=== PATIENT | male | born 1985 | race Two or more races ===

== ENCOUNTER 2023-01-21 01:59 | Emergency (ER) | payer MEDICAID, OTHER ==
[~2023-01-21] VITALS: Ht 175.3 cm; Wt 77.0 kg
[2023-01-21] MEDS ORDERED: NALOXONE HCL 1MG/ML 2ML SYRINGE ONE (02:12)
[2023-01-21 02:14] VITALS: PULSE 97; RESP 18; TEMP 98.9; O2SAT 97
[2023-01-21] MEDS ORDERED: NALOXONE HCL 1MG/ML 2ML SYRINGE IV ONE (02:30)
[2023-01-21] MEDS ORDERED: ONDANSETRON HCL 4 MG/2 ML VIAL IV ONE (03:00)
[2023-01-21 03:06] LABS: Basophils # (auto) 0.1 10 ^3/uL (0-0.2); Eosinophils # (auto) 0.1 10 ^3/uL (0-0.8); Eosinophils % (auto) 0.6 % (0.0-7.0); Hematocrit 46.2 % (41.0-53.0); Hemoglobin 15.3 g/dL (13.5-17.5); Lymphocytes # (auto) 2.3 10 ^3/uL (0.4-5.4); Lymphocytes % (auto) 25.3 % (10.0-50.0); Mean Corpuscular Hemoglobin 31.6 pg (28.0-32.0); Mean Corpuscular Hgb Conc. 33.1 g/dL (32.0-36.0); Mean Corpuscular Volume 95.4 fL (80.0-100.0); Monocytes # (auto) 0.7 10 ^3/uL (0-1.3); Monocytes % (auto) 7.5 % (0.0-12.0); Neutrophils # (auto) 6.1 10 ^3/uL (1.6-8.6); Neutrophils % (auto) 65.6 % (37.0-80.0); Red Blood Cells 4.84 10^6/uL (4.5-5.90); Red Cell Distribution Width 14.9 % (11.8-14.3); White Blood Cell 9.2 10^3/uL (4.4-10.8)
[2023-01-21 03:11] LABS: Amphetamine Screen, Urine Neg (NEGATIVE)
[2023-01-21 03:12] LABS: Barbiturate Scree,Urine Neg (NEGATIVE); Benzodiazephine Screen, Urine Neg (NEGATIVE); Cannabinoid Screen, Urine Pos (NEGATIVE); Cocaine Screen, Urine Neg (NEGATIVE); Opiate Scree,Urine Neg (NEGATIVE); Phencyclidine Screen, Urine Neg (NEGATIVE)
[2023-01-21 03:15] LABS: Acetaminophen < 2.0 UG/ML (10.0-20.0); Alanine Aminotransferase 26 U/L (7-40); Albumin 4.4 g/dL (3.2-4.8); Alkaline Phosphatase 76 U/L (46-116); Anion Gap 12 (5-15); Aspartate Aminotransferase 71 U/L (13-40); Calcium 8.9 mg/dL (8.7-10.4); Carbon Dioxide 22 mmol/L (20-30); Chloride 107 mmol/L (98-107); Glucose 98 mg/dL (74-106); Lipase 51 U/L (12-53); Potassium 3.7 mmol/L (3.5-5.1); Sodium 141 mmol/L (136-145)
[2023-01-21 03:16] LABS: Bilirubin, Total 0.4 mg/dL (0.2-1.0); Total Protein 7.1 g/dL (5.7-8.2)
[2023-01-21 03:17] LABS: BUN/Creatinine Ratio 6.2 (10.0-20.0); Blood Urea Nitrogen < 5 mg/dL (9-23); Salicylate < 3.0 mg/dL (2.8-20.0)
[2023-01-21 03:25] LABS: Urine Bacteria NONE SEEN /hpf (None Seen); Urine Blood Negative /uL (Negative); Urine Clarity Clear (Clear); Urine Color Colorless (Yellow); Urine Protein, UAD Negative (Negative); Urine Specific Gravity 1.011 (1.001-1.035); Urine Urobilinogen Normal (Negative); Urine WBC 1 /hpf (0 - 3); Urine pH 5.5 (5.0-8.0)
[2023-01-21] MEDS ORDERED: SODIUM CHLORIDE 0.9% 1,000 ML IV ONE (03:45)
[2023-01-21] MEDS ORDERED: ONDANSETRON HCL 4 MG/2 ML VIAL IV PRN (04:00)
[2023-01-21] MEDS ORDERED: IBUPROFEN 600 MG TAB PO PRN (04:00)
[2023-01-21] MEDS ORDERED: DOCUSATE SOD 100 MG CAP PO PRN (04:00)
[2023-01-21] MEDS ORDERED: FOLIC ACID 1 MG, MULTIPLE VITAMIN 10 ML, MAGNESIUM SULF SDV 50% 8 MEQ, THIAMINE INJ 100... INJ SCH ×5 (04:00)
[2023-01-21] MEDS ORDERED: LORazepam 2MG/ML-1ML VIAL IV PRN (04:00)
[2023-01-21 05:03] VITALS: BP 131/71; PULSE 82; RESP 18; O2SAT 98
[2023-01-21] MEDS ORDERED: SODIUM CHLOR 0.9% PF (SALINE LOCK) 10ML VIAL/SYR IV SCH (06:00)
== END 2023-01-21 05:23 | disposition home or self-care (01) ==
LOC: EDBD 01:59 → EDSEX 01:59 → ER 01:59
DX: F10.129 Alcohol abuse with intoxication, unspecified (principal); F12.90 Cannabis use, unspecified, uncomplicated; Z79.899 Other long term (current) drug therapy; Y90.0 Blood alcohol level of less than 20 mg/100 ml
CPT/HCPCS: 36415; 51701; 70450; 71045; 80053; 80307; 80320; 80329; 81001; 83690; 85025; 96361; 96374; 96375; 99285; J2310; J2405; J3411; J3475; J7030; J7070; 51702

== ENCOUNTER 2023-03-16 22:20 | Emergency (ER) | payer MEDICAID ==
[~2023-03-16] VITALS: Ht 182.9 cm; Wt 95.5 kg
[2023-03-16] MEDS ORDERED: SODIUM CHLORIDE 0.9% 1,000 ML IVB ONE (22:45)
[2023-03-16 23:16] VITALS: RESP 18; O2SAT 98
[2023-03-16 23:30] LABS: Eosinophils # (auto) 0.1 10 ^3/uL (0-0.8); Hemoglobin 17.1 g/dL (13.5-17.5); Lymphocytes % (auto) 32.7 % (10.0-50.0)
[2023-03-16 23:32] LABS: Basophils # (auto) 0.2 10 ^3/uL (0-0.2); Basophils % (auto) 1.4 % (0.0-2.0); Eosinophils % (auto) 1.1 % (0.0-7.0); Hematocrit 51.1 % (41.0-53.0); Lymphocytes # (auto) 3.5 10 ^3/uL (0.4-5.4); Mean Corpuscular Hgb Conc. 33.4 g/dL (32.0-36.0); Mean Corpuscular Volume 95.8 fL (80.0-100.0); Monocytes # (auto) 0.6 10 ^3/uL (0-1.3); Monocytes % (auto) 5.7 % (0.0-12.0); Neutrophils # (auto) 6.4 10 ^3/uL (1.6-8.6); Neutrophils % (auto) 59.1 % (37.0-80.0); Red Blood Cells 5.34 10^6/uL (4.5-5.90); Red Cell Distribution Width 14.3 % (11.8-14.3); White Blood Cell 10.9 10^3/uL (4.4-10.8)
[2023-03-17 00:17] LABS: Alanine Aminotransferase 49 U/L (7-40); Albumin 5.1 g/dL (3.2-4.8); Alkaline Phosphatase 89 U/L (46-116); Anion Gap 11 (5-15); Aspartate Aminotransferase 76 U/L (13-40); BUN/Creatinine Ratio 8.4 (10.0-20.0); Bilirubin, Total 0.5 mg/dL (0.2-1.0); Blood Urea Nitrogen 7 mg/dL (9-23); Calcium 8.8 mg/dL (8.7-10.4); Carbon Dioxide 25 mmol/L (20-30); Chloride 107 mmol/L (98-107); Glucose 101 mg/dL (74-106); Potassium 3.7 mmol/L (3.5-5.1); Sodium 143 mmol/L (136-145); Total Protein 8.1 g/dL (5.7-8.2)
[2023-03-17 00:36] LABS: Blood Alcohol 507.2 mg/dL (<10)
[2023-03-17] MEDS ORDERED: MORPHINE SULFATE 4 MG/ML SYR/VIAL IV ONE (02:15)
[2023-03-17 05:50] VITALS: BP 135/78; PULSE 92; RESP 16; O2SAT 100
[2023-03-17] MEDS ORDERED: ACETAMINOPHEN 325 MG TAB PO ONE (06:00)
[2023-03-17] MEDS ORDERED: IBUPROFEN 600 MG TAB PO ONE (06:00)
== END 2023-03-17 06:06 | disposition home or self-care (01) ==
LOC: EDBD 22:20 → ER 22:20
DX: S01.111A Laceration without foreign body of right eyelid and periocular area, initial encounter (principal); F10.129 Alcohol abuse with intoxication, unspecified; R51.9 Headache, unspecified; Z79.899 Other long term (current) drug therapy; W18.39XA Other fall on same level, initial encounter; Y93.89 Activity, other specified; Y92.89 Other specified places as the place of occurrence of the external cause; Y99.8 Other external cause status; Y90.8 Blood alcohol level of 240 mg/100 ml or more
CPT/HCPCS: 12011; 36415; 70450; 72125; 73100; 73560; 80053; 80320; 85025; 93005; 96361; 96374; 99285; J2270; J7030

== ENCOUNTER 2023-07-24 07:02 | Emergency (ER) | payer MEDICAID ==
[~2023-07-24] VITALS: Ht 185.4 cm; Wt 88.1 kg
[2023-07-24] MEDS ORDERED: CHL10C PO (08:47)
[2023-07-24] MEDS ORDERED: ZOFR4T PO (08:47)
[2023-07-24] MEDS: chlordiazePOXIDE HCL 5 MG CAP PO ONE (09:01)
[2023-07-24 09:03] VITALS: BP 163/111; PULSE 107; RESP 17; TEMP 97.7; O2SAT 99
== END 2023-07-24 09:09 | disposition home or self-care (01) ==
LOC: ER 07:02
DX: F10.129 Alcohol abuse with intoxication, unspecified (principal); F12.10 Cannabis abuse, uncomplicated; F17.210 Nicotine dependence, cigarettes, uncomplicated; F15.10 Other stimulant abuse, uncomplicated; I10 Essential (primary) hypertension; Y90.8 Blood alcohol level of 240 mg/100 ml or more

== ENCOUNTER 2023-08-16 18:16 | Emergency (ER) | payer MEDICAID ==
[~2023-08-16] VITALS: Ht 185.4 cm; Wt 91.0 kg
[~2023-08-16 18:16] MED LIST: CHL10C PO; ZOFR4T PO
[2023-08-16 18:45] VITALS: PULSE 95; RESP 24; O2SAT 97
[2023-08-16] MEDS: MORPHINE SULFATE 4 MG/ML SYR/VIAL IV ONE (19:03)
[2023-08-16] MEDS: LORazepam 2MG/ML-1ML VIAL IV ONE (19:03)
[2023-08-16] MEDS: ONDANSETRON HCL 4 MG/2 ML VIAL IV ONE (19:03)
[2023-08-16 20:00] VITALS: PULSE 99; RESP 14; TEMP 97.7; O2SAT 97
[2023-08-16] MEDS ORDERED: CYCL-837 PO (20:35)
[2023-08-16] MEDS ORDERED: LIDO5DIS21 TOP (20:35)
[2023-08-16] MEDS ORDERED: NAPR-591 PO (20:35)
[2023-08-16] MEDS ORDERED: ACET-1304 PO (20:35)
[2023-08-16 22:00] VITALS: BP 124/79; PULSE 85; RESP 12; O2SAT 99
== END 2023-08-16 22:53 | disposition home or self-care (01) ==
LOC: EDBD 18:16 → EDUNIT# 18:16 → ER 18:16
DX: S90.02XA Contusion of left ankle, initial encounter (principal); S90.32XA Contusion of left foot, initial encounter; I10 Essential (primary) hypertension; F17.210 Nicotine dependence, cigarettes, uncomplicated; F12.10 Cannabis abuse, uncomplicated; F15.10 Other stimulant abuse, uncomplicated; X58.XXXA Exposure to other specified factors, initial encounter; Y93.89 Activity, other specified; Y92.89 Other specified places as the place of occurrence of the external cause; Y99.8 Other external cause status
CPT/HCPCS: 73610; 73620; 96374; 96375; 99284; J2060; J2270; J2405

== ENCOUNTER 2023-12-02 18:14 | Emergency (ER) | payer MEDICAID ==
[~2023-12-02] VITALS: Ht 185.4 cm; Wt 90.7 kg
[~2023-12-02 18:14] MED LIST changes: +ACET-1304 PO; +CYCL-837 PO; +LIDO5DIS21 TOP; +NAPR-591 PO
[2023-12-02 19:46] LABS: Basophils # (auto) 0.1 10 ^3/uL (0-0.2); Basophils % (auto) 1.2 % (0.0-2.0); Eosinophils # (auto) 0 10 ^3/uL (0-0.8); Eosinophils % (auto) 0.2 % (0.0-7.0); Hematocrit 46.3 % (41.0-53.0); Hemoglobin 16.3 g/dL (13.5-17.5); Lymphocytes # (auto) 2.4 10 ^3/uL (0.4-5.4); Lymphocytes % (auto) 26.6 % (10.0-50.0); Mean Corpuscular Hemoglobin 33.2 pg (28.0-32.0); Mean Corpuscular Hgb Conc. 35.1 g/dL (32.0-36.0); Mean Corpuscular Volume 94.6 fL (80.0-100.0); Monocytes # (auto) 1.1 10 ^3/uL (0-1.3); Monocytes % (auto) 11.5 % (0.0-12.0); Neutrophils # (auto) 5.6 10 ^3/uL (1.6-8.6); Neutrophils % (auto) 60.5 % (37.0-80.0); Platelet Count (auto) 361 10^3/uL (140-450); Red Blood Cells 4.89 10^6/uL (4.5-5.90); Red Cell Distribution Width 13.7 % (11.8-14.3); White Blood Cell 9.2 10^3/uL (4.4-10.8)
[2023-12-02 19:53] LABS: Alanine Aminotransferase 78 U/L (7-40); Albumin 4.9 g/dL (3.2-4.8); Alkaline Phosphatase 77 U/L (46-116); Anion Gap 14 (5-15); Aspartate Aminotransferase 136 U/L (13-40); BUN/Creatinine Ratio 5.4 (10.0-20.0); Blood Urea Nitrogen 5 mg/dL (9-23); Calcium 9.7 mg/dL (8.7-10.4); Carbon Dioxide 22 mmol/L (20-30); Chloride 99 mmol/L (98-107); Glucose 143 mg/dL (74-106); Potassium 3.2 mmol/L (3.5-5.1); Sodium 135 mmol/L (136-145)
[2023-12-02 19:54] LABS: Bilirubin, Total 2.9 mg/dL (0.2-1.0); Total Protein 7.7 g/dL (5.7-8.2)
[2023-12-03 00:45] VITALS: PULSE 98; RESP 20
[2023-12-03] MEDS: SODIUM CHLORIDE 0.9% 3,000 ML IV ONE (01:06)
[2023-12-03] MEDS: ONDANSETRON HCL 4 MG/2 ML VIAL IV ONE (01:07)
[2023-12-03 04:42] LABS: Urine Bacteria None Seen /hpf (None Seen)
[2023-12-03 05:03] LABS: Urine Blood Negative /uL (Negative); Urine Clarity Turbid (Clear); Urine Color Orange (Yellow); Urine Mucus MODERATE (None Seen); Urine Protein, UAD 1+ (Negative); Urine Specific Gravity 1.039 (1.001-1.035); Urine Urobilinogen 8 mg/dL (Negative); Urine WBC 2 /hpf (0 - 3)
[2023-12-03 05:05] LABS: Amphetamine Screen, Urine Pos (NEGATIVE)
[2023-12-03 05:06] LABS: Barbiturate Scree,Urine Neg (NEGATIVE); Benzodiazephine Screen, Urine Neg (NEGATIVE); Cannabinoid Screen, Urine Pos (NEGATIVE); Cocaine Screen, Urine Neg (NEGATIVE); Opiate Scree,Urine Neg (NEGATIVE); Phencyclidine Screen, Urine Neg (NEGATIVE)
[2023-12-03] MEDS ORDERED: LORazepam 2MG/ML-1ML VIAL IV ONE (09:15)
[2023-12-03] MEDS: LORazepam 2MG/ML-1ML VIAL IV ONE (09:22)
[2023-12-03 11:24] VITALS: BP 166/88; PULSE 92; RESP 18; TEMP 98.1; O2SAT 98
== END 2023-12-03 07:45 | disposition still patient (30) ==
LOC: ER 18:14
DX: F10.129 Alcohol abuse with intoxication, unspecified (principal); I10 Essential (primary) hypertension; F17.210 Nicotine dependence, cigarettes, uncomplicated; F15.90 Other stimulant use, unspecified, uncomplicated; Z79.899 Other long term (current) drug therapy; Y90.0 Blood alcohol level of less than 20 mg/100 ml
CPT/HCPCS: 36415; 80053; 80307; 80320; 81001; 85025; 93005; 96361; 96374; 96375; 99284; J2060; J2405; J7030

== ENCOUNTER 2024-01-08 11:28 | Emergency (ER) | payer MEDICAID ==
[~2024-01-08] VITALS: Ht 188 cm; Wt 88.0 kg
[2024-01-08] MEDS: chlordiazePOXIDE HCL 25 MG CAP PO ONE (12:06)
[2024-01-08] MEDS: LORazepam 2MG/ML-1ML VIAL IV ONE (12:07)
[2024-01-08] MEDS: SODIUM CHLORIDE 0.9% 1,000 ML IV ONE (12:07)
[2024-01-08] MEDS: FAMOTIDINE (10MG/ML) 2ML VL IV ONE (12:07)
[2024-01-08] MEDS: ONDANSETRON HCL 4 MG/2 ML VIAL IV ONE (12:07)
[2024-01-08 12:27] VITALS: BP 134/88; PULSE 94; RESP 14; O2SAT 97
[2024-01-08 12:45] LABS: Basophils # (auto) 0.1 10 ^3/uL (0-0.2); Eosinophils # (auto) 0 10 ^3/uL (0-0.8); Eosinophils % (auto) 0.1 % (0.0-7.0); Hemoglobin 16.5 g/dL (13.5-17.5); Lymphocytes # (auto) 1.5 10 ^3/uL (0.4-5.4); Lymphocytes % (auto) 28.5 % (10.0-50.0); Mean Corpuscular Hgb Conc. 35.1 g/dL (32.0-36.0); Mean Corpuscular Volume 96.8 fL (80.0-100.0); Monocytes # (auto) 0.7 10 ^3/uL (0-1.3); Monocytes % (auto) 13.1 % (0.0-12.0); Neutrophils # (auto) 2.9 10 ^3/uL (1.6-8.6); Neutrophils % (auto) 56.3 % (37.0-80.0); Nucleated Red Blood Cells % 0.2 %; Platelet Count (auto) 230 10^3/uL (140-450); Red Blood Cells 4.85 10^6/uL (4.5-5.90); Red Cell Distribution Width 14.4 % (11.8-14.3); White Blood Cell 5.1 10^3/uL (4.4-10.8)
[2024-01-08 12:55] LABS: Alanine Aminotransferase 218 U/L (7-40); Alkaline Phosphatase 112 U/L (46-116); Anion Gap 16 (5-15); Aspartate Aminotransferase 378 U/L (13-40); Calcium 9.3 mg/dL (8.7-10.4); Carbon Dioxide 22 mmol/L (20-31); Chloride 103 mmol/L (98-107); Glucose 146 mg/dL (74-106); Potassium 3.7 mmol/L (3.5-5.1); Sodium 141 mmol/L (136-145)
[2024-01-08 12:56] LABS: Albumin 4.4 g/dL (3.2-4.8); Bilirubin, Total 0.9 mg/dL (0.2-1.0); Total Protein 7.6 g/dL (5.7-8.2)
[2024-01-08 13:15] LABS: BUN/Creatinine Ratio 5.1 (10.0-20.0); Blood Urea Nitrogen < 5 mg/dL (9-23)
[2024-01-08 13:16] LABS: Blood Alcohol 457.8 mg/dL (<10)
[2024-01-08 13:26] LABS: Lipase 48 U/L (12-53)
== END 2024-01-08 16:47 | disposition home or self-care (01) ==
LOC: ER 11:28
DX: F10.939 Alcohol use, unspecified with withdrawal, unspecified (principal); I10 Essential (primary) hypertension; F17.210 Nicotine dependence, cigarettes, uncomplicated; F15.90 Other stimulant use, unspecified, uncomplicated; Z79.899 Other long term (current) drug therapy; Y90.0 Blood alcohol level of less than 20 mg/100 ml
CPT/HCPCS: 36415; 74176; 80053; 80320; 83690; 84484; 85025; 93005; 96361; 96374; 96375; 99285; J2060; J2405; J3490; J7030